=== PATIENT | female | born 1945 ===

== ENCOUNTER 2017-01-05 08:05 | Outpatient (CLI) | payer MEDICARE | END 2017-01-05 08:06 | disposition home or self-care (01) | LOC: LABHHL 08:05 | PROVIDERS: ATTEND Surgery | DX: D24.1 Benign neoplasm of right breast (principal); L82.1 Other seborrheic keratosis; B07.8 Other viral warts | CPT/HCPCS: 88305; 88307 ==

== ENCOUNTER 2020-11-10 09:39 | Emergency (ER) | payer MEDICARE ==
[2020-11-10 10:12] VITALS: BP 171/75
--- NOTE | 2020-11-10 10:15 | Event Note ---
ED Screening Note Date of service: 11/10/20 Time: 10:11 ED Screening Note: Pt was brought in by daughter with c/o right leg pain and difficulty walking due to leg pain. Daughter states that pt sleep in chair last night (which is not unusual) but when they went wake her, they found that she had soiled herself and she was unable to stand up because of pain in right leg. Daughter states that yesterday morning they found patient sitting on floor. She states pt lives with her and is not sure how or why she was on floor. She states she did not hear any noise to suggest a fall and she was unsure how long she was on floor yesterday. She states that after getting up the floor yesterday she was walking around and moving about like her normal self. Past medical history significant for dementia, and hypertension This initial assessment/diagnostic orders/clinical plan/treatment(s) is/are sub ject to change based on patients health status, clinical progression and re- assessment by fellow clinical providers in the ED. Further treatment and workup at subsequent clinical providers discretion. Patient/guardian urged not to elope from the ED as their condition may be serious if not clinically assessed and managed. Initial orders include: X-rays labs/
--- NOTE | 2020-11-10 11:34 | XRay Report ---
RIGHT KNEE 7 VIEW(S) INDICATION / CLINICAL INFORMATION: knee pain COMPARISON: None available. FINDINGS: BONES / JOINT(S): No acute fracture or subluxation. Moderately advanced bilateral knee degenerative a rthrosis with small left knee effusion. SOFT TISSUES: Subcutaneous soft tissue edema both knees ADDITIONAL FINDINGS: None. Signer Name: Saul Pavon MD Signed: 11/10/2020 11:30 AM Workstation Name: [id number]
--- NOTE | 2020-11-10 11:42 | XRay Report ---
RIGHT HIP 2 VIEW(S) INDICATION / CLINICAL INFORMATION: leg pain COMPARISON: None available. FINDINGS: BONES / JOINT(S): No acute fracture or subluxation. Mild right and moderate left hip degenerative art hrosis SOFT TISSUES: No significant abnormality. ADDITIONAL FINDINGS: None. Signer Name: Saul Pavon MD Signed: 11/10/2020 11:37 AM Workstation Name: [id number]
[2020-11-10 11:49] LABS: Basophils % (Auto) 0.9 % (0.0-1.8); Eosinophils % (Auto) 0.6 % (0.0-4.3); Hematocrit 35.9 % (30.3-42.9); Hemoglobin 12.2 gm/dl (10.1-14.3); Lymphocytes # (Auto) 0.7 K/mm3 (1.2-5.4); Lymphocytes % (Auto) 17.8 % (13.4-35.0); Mean Corpuscular HGB Conc 34 % (30-34); Mean Corpuscular Volume 86 fl (79-97); Monocytes # (Auto) 0.5 K/mm3 (0.0-0.8); Monocytes % (Auto) 11.5 % (0.0-7.3); Platelet Count 176 K/mm3 (140-440); Red Blood Count 4.16 M/mm3 (3.65-5.03); Red Cell Distribution Width 14.8 % (13.2-15.2)
[2020-11-10 12:05] LABS: Alanine Aminotransferase 16 units/L (7-56); Albumin 3.9 g/dL (3.9-5); Blood Urea Nitrogen 17 mg/dL (7-17); Calcium 8.8 mg/dL (8.4-10.2); Hemolysis Index 8
[2020-11-10 12:06] LABS: BUN/Creatinine Ratio 34
[2020-11-10] MEDS ORDERED: POTASSIUM CHLORIDE ER 20 MEQ TAB PO ONE ×2 (17:03→19:51)
[2020-11-10] MEDS ORDERED: IBUPROFEN 400 MG TAB PO ONE ×2 (17:03→19:51)
[2020-11-10] MEDS ORDERED: ACETAMINOPHEN 325 MG TAB PO ONE ×2 (17:03→19:52)
--- NOTE | 2020-11-10 17:16 | Emergency Department Report ---
ED General Adult HPI - General Chief complaint: Extremity Injury, Lower Stated complaint: RIGHT KNEE PAIN PUI?: No Time Seen by Provider: 11/10/20 16:45 Source: patient, family, EMS ( EMS documentation not available at time of chart dictation ), RN notes reviewed Mode of arrival: Wheelchair Limitations: Other (Physical limitation) - History of Present Illness Initial comments: The patient was evaluated in the emergency department for symptoms described in the history of present illness. He/she was evaluated in the context of the global COVID-19 pandemic, which necessitated consideration that the patient might be at risk for infection with the virus that causes COVID-19. Institutional protocols and algorithms that pertain to the evaluation of patients at risk for COVID-19 are in a state of rapid change based on inform ation released by regulatory bodies including the CDC and federal and state organizations. These policies and algorithms were followed during the patient's care in the emergency department. Please note that these policies, procedures and recommendations changed on a rapid basis. Primary CARE doctor: Dr. Edmundo Hitchcock Daughter: Ms. Sol Vaughn; [phone] This is a 75-year-old female. She is not known to myself previously. She is brought to the hospital by her daughter, who provides the history of present illness. The patient has a past medical history of hypertension, dementia, h ypothyroidism, and occasionally hypokalemia. She presents to the ER with her daughter with a complaint of poor mobility. As per her daughter, the patient has been having difficulty getting out of chairs recently. There are no new medications. The patient also has difficulty ambulating without assistance. The patient complains of chronic knee pain and hip pain. There is no fall or trauma that the daughter is aware of, and the patient denies head trauma as well. Patient's daughter indicates the patient was in a chair basically all night, and not able to get up. They have not attempted any analgesia [id number]. The patient occasionally ambulates with a cane, but does not ambulate with a cane consistently, or with a walker. There is a home helper who comes during the weekday, and the patient has 7 hours of home assistance time during most weekdays. The patient herself denies headache, neck pain, chest pain, abdominal pain, shortness of breath and urinary symptoms. Patient and daughter both deny Covid symptomatology, and patient completed her COVID-19 vaccination series in July of this year. Primary CARE doctor: Dr. Estrada Bello, Dr. Edmundo Hitchcock. -: Gradual, days(s) Location: lower extremity Radiation: non-radiation Quality: aching Consistency: intermittent Improves with: rest Worsens with: movement - Related Data Allergies Allergy/AdvReac Type Severity Reaction Status Date / Time No Known Allergies Allergy Unverified 11/10/20 10:12 ED Review of Systems ROS: Stated complaint: RIGHT KNEE PAIN Other details as noted in HPI Constitutional: denies: fever Eyes: denies: eye discharge ENT: denies: congestion Respiratory: denies: cough Cardiovascular: denies: chest pain Gastrointestinal: denies: abdominal pain, nausea, vomiting, diarrhea Genitourinary: denies: dysuria Musculoskeletal: arthralgia, myalgia Neurological: weakness (Generalized weakness) ED Past Medical Hx - Past Medical History Previous Medical History?: Yes Hx Hypertension: Yes Hx Dementia: Yes Additional medical history: Thyroid - Surgical History Past Surgical History?: Yes Additional Surgical History: Cataract surgery,. Tubaligation - Social History Smoking Status: Former Smoker Substance Use Type: Prescribed ED Physical Exam - General Limitations: Physical Limitation, Other (Dementia) General appearance: in no apparent distress - Head Head exam: Present: atraumatic, normocephalic - Eye Eye exam: Present: normal appearance, EOMI. Absent: nystagmus - ENT ENT exam: Present: normal exam, normal orophraynx, mucous membranes moist, normal external ear exam - Neck Neck exam: Present: normal inspection, full ROM. Absent: tenderness, meningismus - Respiratory Respiratory exam: Present: normal lung sounds bilaterally. Absent: respiratory distress, wheezes, rales, rhonchi, stridor, decreased breath sounds - Cardiovascular Cardiovascular Exam: Present: regular rate, normal rhythm, normal heart sounds. Absent: bradycardia, tachycardia, irregular rhythm, systolic murmur, diastolic murmur, rubs, gallop - GI/Abdominal GI/Abdominal exam: Present: soft, normal bowel sounds. Absent: distended, tenderness, guarding, rebound, rigid, pulsatile mass - Extremities Exam Extremities exam: Present: normal inspection (Active and passive range of motion intact in the bilateral upper extremities, bilateral hips and ankles. Range of motion is intact in the knees, although limited secondary to pain.), tenderness (There is tenderness to the bilateral medial and lateral knee joint lines. There is no redness, pus or streaking. There is no pelvic tenderness. There is no long bony tenderness), pedal edema (1+ edema bilateral lower extremity), other (2+ pulses noted in the bilateral upper and lower extremities. There is no palpable cord. negative Homans sign. Muscular compartments are soft. The pelvis is stable.). Absent: calf tenderness - Back Exam Back exam: Present: normal inspection. Absent: tenderness, CVA tenderness (R), CVA tenderness (L), paraspinal tenderness, vertebral tenderness - Neurological Exam Neurological exam: Present: alert, other (No facial droop. Tongue midline. Extraocular movements intact bilaterally. Facial sensation intact to light touch in V1, V2, V3 distribution bilaterally. 5 and a 5 strength in 4 extremities. Sensation intact to light touch in 4 extremities.). Absent: motor sensory deficit - Psychiatric Psychiatric exam: Present: normal affect, normal mood - Skin Skin exam: Present: warm, dry, intact, normal color. Absent: rash ED Course Vital Signs 11/10/20 10:06 Temperature 98.9 F Pulse Rate 74 Respiratory 20 Rate Blood Pressure 171/75 O2 Sat by Pulse 98 Oximetry - Reevaluation(s) Reevaluation #1: 11/10/20 17:14 Differential diagnosis, including but not limited to: Deconditioning, dementia, debility, arthritis, case management patient Assessment and plan: 75-year-old female with dementia, poor mobility at baseline, with worsening mobility, but no focal motor neurologic deficits, mental status at baseline as per daughter, likely experiencing natural history of dementia, arthritis, and deconditioning. Counseled daughter appropriately. Patient will be medicated with ibuprofen and acetaminophen. She will be given potassium chloride. Urinalysis will be ordered. Patient will be given trial of ambulation with a 1 person assist with a walker. If patient able to ambulate with walker, could discharge patient home with walker and daughter, with consultation for case management and home physical therapy evaluation, and I have discussed this with the daughter. If patient not able to ambulate even with an assist, daughter will not be able to take care of the patient, or help her with activities of daily living, and she will thus need to remain in the emergency room pending expedited case management and physical therapy/Occupational Therapy evaluation. I have discussed this plan of care with the patient and daughter, daughter articulates understanding. Patient is also agreeable to this plan of care. 11/10/20 17:18 Elevated blood pressure reviewed and appreciated. Not acutely decompensated. Patient on lisinopril, HCTZ, metoprolol, as well as hydralazine. Please refer ence the [employer] clinical policy on asymptomatic hypertension. Reevaluation #2: 11/10/20 19:18 Patient able to ambulate with assistance and rolling walker. Patient and daughter articulate readiness for discharge with rolling walker. Case management consultation pending, physical therapy/Occupational Therapy consultation pending as an outpatient. Urinalysis pending at this time. Reevaluation #3: 11/10/20 19:19 Please note that this patient had a rather prolonged stay in the emergency room secondary to requiring straight catheterization for acquisition of urine sample Reevaluation #4: 11/10/20 20:39 Patient resting comfortably in stretcher. She is able to ambulate with one-pe rson assist and walker. Urinalysis not consistent with urinary tract infection. Daughter comfortable to take patient home. Reiterated discharge instructions. Return precautions are reviewed ED Medical Decision Making - Lab Data Result diagrams: 11/10/20 11:16 11/10/20 11:16 Vital Signs 11/10/20 10:06 Temperature 98.9 F Pulse Rate 74 Respiratory 20 Rate Blood Pressure 171/75 O2 Sat by Pulse 98 Oximetry Lab Results 11/10/20 11/10/20 Range/Units 11:16 11:16 WBC 3.9 L (4.5-11.0) K/mm3 RBC 4.16 (3.65-5.03) M/mm3 Hgb 12.2 (10.1-14.3) gm/dl Hct 35.9 (30.3-42.9) % MCV 86 (79-97) fl MCH 29 (28-32) pg MCHC 34 (30-34) % RDW 14.8 (13.2-15.2) % Plt Count 176 (140-440) K/mm3 Lymph % (Auto) 17.8 (13.4-35.0) % Merrick % (Auto) 11.5 H (0.0-7.3) % Eos % (Auto) 0.6 (0.0-4.3) % Baso % (Auto) 0.9 (0.0-1.8) % Lymph # (Auto) 0.7 L (1.2-5.4) K/mm3 Merrick # (Auto) 0.5 (0.0-0.8) K/mm3 Eos # (Auto) 0.0 (0.0-0.4) K/mm3 Baso # (Auto) 0.0 (0.0-0.1) K/mm3 Seg Neutrophils % 69.2 (40.0-70.0) % Seg Neutrophils # 2.7 (1.8-7.7) K/mm3 Sodium 140 (137-145) mmol/L Potassium 3.4 L (3.6-5.0) mmol/L Chloride 100.4 (98-107) mmol/L Carbon Dioxide 26 (22-30) mmol/L Anion Gap 17 mmol/L BUN 17 (7-17) mg/dL Creatinine 0.5 L (0.6-1.2) mg/dL Estimated GFR > 60 ml/min BUN/Creatinine Ratio 34 % Glucose 83 (65-100) mg/dL Calcium 8.8 (8.4-10.2) mg/dL Magnesium 2.20 (1.7-2.3) mg/dL Total Bilirubin 0.60 (0.1-1.2) mg/dL AST 35 (5-40) units/L ALT 16 (7-56) units/L Alkaline Phosphatase 39 (35-129) units/L Total Creatine Kinase 767 H (30-135) units/L Total Protein 7.2 (6.3-8.2) g/dL Albumin 3.9 (3.9-5) g/dL Albumin/Globulin Ratio 1.2 % - Radiology Data Radiology results: pending, report reviewed, image reviewed [facility] [address] [place] [address] XRay Report Signed Patient: ZURDO VAUGHN MR#: [id number] [birth year] : 1945 Acct:[id number] Age/Sex: 75 / F ADM Date: 11/10/20 Loc: ED Attending Dr: Ordering Physician: NEETU QUINTANILLA Date of Service: 11/10/20 Procedure(s): XR knee BILAT 3V Accession Number(s): [id number] cc: NEETU QUINTANILLA Fluoro Time In Minutes: RIGHT KNEE 7 VIEW(S) INDICATION / CLINICAL INFORMATION: knee pain TYRESE RISON: None available. FINDINGS: BONES / JOINT(S): No acute fracture or subluxation. Moderately advanced bilateral knee degenerative arthrosis with small left knee effusion. SOFT TISSUES: Subcutaneous soft tissue edema both knees ADDITIONAL FINDINGS: None. Signer Name: Saul Pavon MD Signed: 11:30 AM Workstation Name: [id number] Transcribed By: TL Dictated By: Saul Pavon MD Electronically Authenticated By: Saul Pavon MD Signed Date/Time: 11/10/20 1130 DD/ 28 [facility] [address] [place] [address] XRay Report Signed Patient: ZURDO VAUGHN MR#: [id number] [birth year] : 1945 Acct:[id number] Age/Sex: 75 / F ADM Date: 11/10/20 Loc: ED Attending Dr: Ordering Physician: NEETU QUINTANILLA Date of Service: 11/10/20 Procedure(s): XR hip 2-3V RT Accession Number(s): [id number] cc: NEETU QUINTANILLA Fluoro Time In Minutes: RIGHT HIP 2 VIEW(S) INDICATION / CLINICAL INFORMATION: leg pain COMPARISON: None available. FINDINGS: BONES / JOINT(S): No acute fracture or subluxation. Mild right and moderate left hip degenerative arthrosis SOFT TISSUES: No significant abnormality. ADDITIONAL FINDINGS: None. Signer Name: Saul Pavon MD Signed: 11/10/2020 11:37 AM Workstation Name: [id number] Transcribed By: TL Dictated By: Saul Pavon MD Electronically Authenticated By: Saul Pavon MD Signed Date/Time: 11/10/20 1137 DD/ 113 Critical care attestation.: If time is entered above; I have spent that time in minutes in the direct care of this critically ill patient, excluding procedure time. ED Disposition Clinical Impression: Dementia, Hypokalemia, Knee pain, Physical deconditioning, Case management patient, Elevated blood pressure reading Disposition: DC-01 TO HOME OR SELFCARE Is pt being admited?: No Does the pt Need Aspirin: No Condition: Good Additional Instructions: Please continue current outpatient medications. Please use the rolling walker for all ambulatory/walking activities. Please follow-up with your primary care doctor within the next week. Patient may take [id number] acetaminophen, alternate with [id number]-yct-lilyppa ibuprofen as needed for physical pain. Patient should receive a call from case management/social insurance adviser, physical therapy, for home evaluation for physical therapy and/or rehabilitation. It will likely take weeks and/or months to improve patient's ability to ambulate and walk. Please return to the emergency room right away with new pain, worsened pain, migration of pain, rectal vomiting, change in mental status, confusion, inability to tolerate liquid feeds, new, worsened or different symptoms not present on the initial emergency room evaluation. Referrals: EDMUNDO HITCHCOCK MD [Primary Care Provider] - 3-5 Days
[2020-11-10 20:26] LABS: Bilirubin,Urine NEG (Negative); Blood,Urine NEG (Negative); Color,Urine Yellow (Yellow); Mucus,Urine FEW /HPF; Urobilinogen,Urine < 2.0 mg/dL (<2.0)
== END 2020-11-10 21:00 | disposition home or self-care (01) ==
LOC: ED 09:39
DX: M25.561 Pain in right knee (principal); F03.90 Unspecified dementia, unspecified severity, without behavioral disturbance, psychotic disturbance, mood disturbance, and anxiety; I10 Essential (primary) hypertension; Z98.51 Tubal ligation status; Z98.890 Other specified postprocedural states; Z87.891 Personal history of nicotine dependence
CPT/HCPCS: 36415; 80053; 81001; 82550; 83735; 84439; 84443; 85025; 87086